=== PATIENT | female | born 1970 | race Asian ===

== ENCOUNTER 2020-04-16 09:59 | Outpatient (CLI) | payer OTHER, SELFPAY | END 2020-04-16 10:00 | disposition home or self-care (01) | LOC: ANHCOVIDVC 09:59 | PROVIDERS: PCP Internal Medicine | DX: Z23 Encounter for immunization (principal) | CPT/HCPCS: 0001A; 91300 ==

== ENCOUNTER 2020-05-07 09:59 | Outpatient (CLI) | payer OTHER, SELFPAY | END 2020-05-07 10:00 | disposition home or self-care (01) | LOC: ANHCOVIDVC 09:59 | PROVIDERS: PCP Internal Medicine | DX: Z23 Encounter for immunization (principal) | CPT/HCPCS: 0002A; 91300 ==

== ENCOUNTER → 2021-12-07 09:50 | Outpatient (CLI) | payer OTHER, SELFPAY ==
--- NOTE | ~2021-12-07 | DEXA_ITS ---
Bone Density Report Name: JANUSZ GOMEZ Age: 50 Sex: Female Ethnicity: Date of : 1970 Indication: postmenopausal; Referring Provider: Gillian Painter Study: Bone densitometry was performed. Exam Date: December 07, 2021 Accession number: [id number] Bone Density: Region BMD T-score Z-score Classification AP Spine (L1-L4) 1.022 -0.2 0.4 Normal Femoral Neck (Left) 0.777 -0.6 0.0 Normal Total Hip (Left) 0.911 -0.3 0.2 Normal Femoral Neck (Right) 0.775 -0.7 0.0 Normal Total Hip (Right) 0.888 -0.4 0.0 Normal Total Hip Mean 0.900 -0.4 0.1 Normal World Health Organization criteria for BMD impression classify patients as: Normal (T-score at or above -1.0), Osteopenia (T-score between -1.0 and -2.5), or Osteoporosis (T-score at or below -2.5). 10-year Fracture Risk: FRAX not reported because: All T-scores for Spine Total, Hip Total, Femoral Neck at or above -1.0 Clinical Information Provided by Patient: Has used the following medications: Vitamin D, LEVOTHYROXINE Patient maximum height was 60.0 Menopause Age: 50 No regular weight bearing exercise Does not regularly consume dairy products Onset of menses at age 15 Number of children 0 Impression: The patient has normal bone mass. Discussion: BONE DENSITY IS ABOVE THE MINIMUM DESIRABLE LEVEL AT ALL SKELETAL SITES TESTED. This patient?s bone mineral density is above the minimum desirable level (T-score -1.0 or better) at all sites measured. The patient should follow a healthful lifestyle (good nutrition with adequate calcium and vitamin D, and appropriate weight-bearing exercise). Follow-Up: Consider repeating this study in 5 years or sooner if there is some new clinical indication. Reported by: MENDOZA on 12/07/2021 10:16:00 AM. Reviewed, dictated and finalized at location [facility]
== END ==
PROVIDERS: PCP Internal Medicine; Visit Provider Advanced Practice Midwife
DX: Z78.0 Asymptomatic menopausal state (principal)
CPT/HCPCS: 77080

== ENCOUNTER 2022-11-01 07:00 | Outpatient (NON) | payer OTHER, SELFPAY | END 2022-11-01 07:01 | disposition home or self-care (01) | LOC: ANHLAB 11-02 12:22 | PROVIDERS: PCP Family Medicine; Visit Provider Nurse Practitioner | DX: D22.72 Melanocytic nevi of left lower limb, including hip (principal); D48.5 Neoplasm of uncertain behavior of skin | CPT/HCPCS: 88305 ==